=== PATIENT | female | born 1950 | race Caucasian/White ===

== ENCOUNTER → 2019-06-28 | Day surgery (SDC) | payer MEDICARE, OTHER ==
[~2019-06-28] MED LIST: AMITRIPTYLINE H25 MG PO; ATORVASTATIN CA20 MG PO; CALCET TABLET1 EACH PO; FENTANYL CITRATE/PF 100MCG/2 ML INJ ONE; LEVOTHYROXINE112 MCG PO; LISINOPRIL-HCT1 EAC1 PO; METFORMIN HCL500 MG PO; MIDAZOLAM HCL 2 MG/2 ML VIAL ONE; ONE DAILY WOME1 EACH PO; OR PHACO EYE KIT ONE; PANTOPRAZOLE SO40 MG PO; PAROXETINE HCL20 MG PO; PREOP PHACO EYE KIT ONE
--- OUTSIDE RECORDS SUMMARY | 2019-06-28 07:40 | XMS REPORT ---
Author Organization Unknown Address [address] [place] [address] Phone [phone] Care Team Providers Care Scheduler Name Role Phone RODOLFO CASTRO MD 110 [phone] STEPHANIE TOMLINSON MD 107 [phone] Allergies Code Code System Name Reaction Severity Status Onset 2670 RxNorm Codeine Active Medications Name Status Start Date Stop Date alendronate 70 mg tablet Take 1 tablet every week by oral route for 90 days. Active Not available amitriptyline 50 mg tablet Take 2 tablets every day by oral route for 90 days. Active Not available amoxicillin 500 mg capsule Completed 12/15/2017 atorvastatin 40 mg tablet Take 1 tablet by mouth every day Active Not available hydrochlorothiazide 25 mg tablet Active Not available levothyroxine 112 mcg tablet TAKE 1 TABLET BY MOUTH EVERY DAY Active Not available levothyroxine 125 mcg capsule Take 1 capsule every day by oral route. Completed 02/27/2017 levothyroxine 125 mcg tablet Active Not available lisinopril 20 mg tablet Active Not available lisinopril 20 mg-hydrochlorothiazide 25 mg tablet Take 1 tablet every day by oral route. Active Not available meloxicam 15 mg tablet Completed 12/15/2017 metformin 500 mg tablet TAKE 1 TABLET BY MOUTH TWICE A DAY Active Not available omeprazole 20 mg capsule,delayed release TAKE 1 CAPSULE BY MOUTH EVERY DAY Active Not available omeprazole 40 mg capsule,delayed release Completed 02/27/2017 paroxetine 20 mg tablet TAKE 1 TABLET BY MOUTH EVERY DAY Active Not available raloxifene 60 mg tablet Active Not available tramadol 50 mg tablet Completed 12/15/2017 Problems Name Status Onset Date Source Gastroesophageal Reflux Disease Active 03/02/2017 Osteoporosis Active 03/02/2017 Elevated Liver Enzymes Level Active 03/04/2017 Hypothyroidism Active Diabetes Mellitus Active Hyperlipidemia Active Depressive Disorder Active Hypertensive Disorder Active Procedures Date Name Performed by 09/28/2007 Knee Surgery Notes: both knees-knee replacement Information not available 09/28/1993 Hysterectomy (Partial) Information not available Lab Results Date Name Specimen Result Interpretation Description Value Range Status Address 02/27/2017 CMP, Serum or Plasma High Alt 62 U/L 0-55 U/L Final [facility] Laboratory: [address] [place] [address] High Ast 48 U/L 5-34 U/L Final [facility] Laboratory: [address], [place] Bun 12.0 mg/dL 9.8-20.1 mg/dL Final [facility] Laboratory: [address] [place] [address] Alk Phos 73 unit/L 40-150 unit/L Final [facility]: [address] [facility] Glucose 120 mg/dL 70-99 mg/dL Final [facility] [address] [facility] Albumin 4.1 g/dL 3.5-5.0 g/dL Final [facility] [address] [facility] Creatinine 0.82 mg/dL 0.57-1.11 mg/dL Final [facility] Laboratory: [address] [place] [address] eGFR Non- >60 mL/min/1.73m2 >60 mL/min/1.73m2 Final [facility] Laboratory: [address] [place] [address] Total Bilirubin 0.4 mg/dL 0.2-1.2 mg/dL Final [facility] Laboratory: [address] [place] [address] eGFR - >60 mL/min/1.73m2 >60 mL/min/1.73m2 Final [facility] Laboratory: [address] [place] [address] Sodium 140 mEq/L 136-145 mEq/L Final [facility] Laboratory: [address] Potassium 4.0 mEq/L 3.5-5.1 mEq/L Final [facility] Laboratory: [address] Chloride 101 mmol/L 98-107 mmol/L Final [facility] [address] [facility] Total Protein 7.6 g/dL 6.4-8.3 g/dL Final [facility] [address] [facility] Calcium 9.5 mg/dL 8.4-10.2 mg/dL Final [facility] Laboratory: [address] [place] [address], [place] Co2 27.7 mmol/L 23.0-31.0 mmol/L Final [facility] Laboratory: [address] Anion Gap 11 calc Final [facility] Laboratory: [address] 02/27/2017 Lipid Panel, Serum High Hdl 62 mg/dL 40-60 mg/dL Final [facility] Laboratory: [address] Triglyceride 79 mg/dL 0-149 mg/dL Final [facility] Laboratory: [address] VLDL Calc. 16 mg/dL Final [facility] Laboratory: [address] cholesterol/HDL Ratio 3 mg/dL Final [facility] Laboratory: [address] non-HDL Cholesterol Calc. 114 mg/dL 0-160 mg/dL Final [facility] Laboratory: [address] Cholesterol 176 mg/dL 0-199 mg/dL Final [facility] Laboratory: [address] LDL Calc. 98 mg/dL 0-130 mg/dL Final [facility] Laboratory: [address] 02/27/2017 TSH, Serum or Plasma Low Tsh 0.319 uIU/mL 0.350-4.940 uIU/mL Final [facility] Laboratory: [address] 02/27/2017 HbA1C (Hemoglobin a1C), Blood High A1C W/eag 6.4 % 1.0-5.7 % Final [facility] Laboratory: [address] [place] [address] Average Blood Glucose 137 mg/dL Final [facility] Laboratory: [address] 09/03/2016 CMP, Serum or Plasma Alt 45.0 U/L 0.0-55.0 U/L Final [facility] Laboratory: [address] Ast 31.0 U/L 5.0-34.0 U/L Final [facility] Laboratory: [address] Bun 13.0 mg/dL 7.0-20.0 mg/dL Final [facility] Laboratory: [address] Alk Phos 70.0 unit/L 40.0-150.0 unit/L Final [facility] Laboratory: [address] High Glucose 125.0 mg/dL 70.0-99.0 mg/dL Final [facility] Laboratory: [address] [place] Albumin 3.6 g/dL 3.5-5.0 g/dL Final [facility] [address] [facility] Creatinine 0.8 mg/dL 0.6-1.1 mg/dL Final [facility] [address] [facility] eGFR Non- >60 mL/min/1.73m2 >60.0 mL/min/1.73m2 Final [facility] [address] [facility] Total Bilirubin 0.5 mg/dL 0.2-1.2 mg/dL Final [facility] [address] eGFR - >60 mL/min/1.73m2 >60.0 mL/min/1.73m2 Final [facility] [address] Sodium 139.0 mEq/L 137.0-144.0 mEq/L Final [facility] [address] Potassium 4.1 mEq/L 3.5-5.0 mEq/L Final [facility] [address] [facility] Chloride 103.0 mmol/L 101.0-110.0 mmol/L Final [facility] [address] [facility] Total Protein 6.8 g/dL 6.4-8.3 g/dL Final [facility] [address] [facility] Calcium 9.1 mg/dL 8.4-10.2 mg/dL Final [facility] [address] [facility] Co2 24 mmol/L 22-31 mmol/L Final [facility] Laboratory: [address] [place] Anion Gap 12.0 calc Final [facility] [address] [facility] 09/03/2016 Lipid Panel, Serum Hdl 53.0 mg/dL 40.0-60.0 mg/dL Final [facility] [address] Triglyceride 99.0 mg/dL 0.0-149.0 mg/dL Final [facility] Laboratory: [address] VLDL Calc. 19.8 mg/dL Final [facility] Laboratory: [address] cholesterol/HDL Ratio 3.0 mg/dL Final [facility] Laboratory: [address] non-HDL Cholesterol Calc. 106.0 mg/dL 0.0-160.0 mg/dL Final [facility] Laboratory: [address] Cholesterol 159.0 mg/dL 0.0-199.0 mg/dL Final [facility] Laboratory: [address] LDL Calc. 86.2 mg/dL 0.0-130.0 mg/dL Final [facility] Laboratory: [address] [place] [address], [place] 09/03/2016 TSH, Serum or Plasma Tsh 0.9911 uIU/mL 0.3500-4.9400 uIU/mL Final [facility] Laboratory: [address] [place] [address], [place] 09/03/2016 HbA1C (Hemoglobin a1C), Blood High A1C W/eag 6.5 % 1.0-5.7 % Final [facility] Laboratory: [address] Average Blood Glucose 139.9 mg/dL Final [facility] Laboratory: [address] [address], [place] 02/08/2016 CMP, Serum or Plasma No observation recorded. [facility]: [id number], [place] 08/14/2015 CBC W/ Auto Diff No observation recorded. [facility]: [id number], [place] Glucose, Fingerstick, Blood Blood Glucose: mg/dl 130 [facility]: [address] [place] [address] Albumin:creatinine Ratio, Urine Type Urine Microlalbumin 30 mg/L [facility]: [address] [place] [address] Type Urine Creatinine 100 mg/dL [facility]: [address] [place] [address] Type A:C Ratio <30 mg/g (Normal) [facility]: [address] [place] [address] Past Encounters 12/15/2017 Hypertensive Disorder; Diabetes Mellitus; Mixed Anxiety and Depressive Disorder; Osteoporosis; Hyperlipidemia; Hypothyroidism; Gastroesophageal Reflux Disease Kamille Torres MD: [address] [place] [phone], Ph. 02/27/2017 Hypertensive Disorder; Hypothyroidism; Hyperlipidemia; Mixed Anxiety and Depressive Disorder; Gastroesophageal Reflux Disease; Type 2 Diabetes Mellitus without Complication; Benign Essential Hypertension; Pain in Wrist; Osteoporosis Kamille Torres MD: [address] [place] [address], Ph. 09/03/2016 Mixed Anxiety and Depressive Disorder; Benign Essential Hypertension; Type 2 Diabetes Mellitus without Complication; Hyperlipidemia; Hypothyroidism; Osteoporosis; Influenza Vaccination; Pneumococcal Vaccination Suresh Waggoner MD: [address] [place] [address], Ph. Social History Smoking Status Former Smoker (1/2 PPD) Notes: quit in 2012 Vaccine List Vaccine Type influenza, high dose seasonal 09/03/20160.5 mL influenza, unspecified formulation 05/29/2015 pneumococcal conjugate PCV 13 09/03/20160.5 mL Plan of Care Reminders Provider Appointments None recorded. Lab None recorded. Referral None recorded. Procedures None recorded. Surgeries None recorded. Imaging None recorded. Vitals 12/15/2017 10:00AM Est Patient Height Weight BMI Blood Pressure 5 ft 5 in 247 lbs 41.1 kg/m2 136/84 mm[Hg] 02/27/2017 10:15AM Est Patient Height Weight BMI Blood Pressure 5 ft 5 in 252 lbs 41.9 kg/m2 (1) 156/100 mm[Hg] (2) 167/98 mm[Hg] 09/03/2016 09:30AM Est Patient Height Weight BMI Blood Pressure 5 ft 5 in 245 lbs 40.8 kg/m2 (1) 141/85 mm[Hg] (2) 141/94 mm[Hg]
--- OUTSIDE RECORDS SUMMARY | 2019-06-28 07:40 | XMS REPORT | Encounter Summary ---
Author Organization Unknown Address [address] [place] [address] Phone [phone] Care Team Providers Care Mat Cleaning Machine Operator Name Role Phone Dr. Malcolm Damian 3 [phone] Kamille Torres MD 3 [phone] Chris Deluna MD 107 [phone] Alex Little MD 110 [phone] Reason for Visit Hypothyroidism; Hypertensive disorder; Hyperlipidemia; Diabetes mellitus; Depressive disorder Instructions 1. Mixed anxiety and depressive disorder amitriptyline 50 mg tablet paroxetine 20 mg tablet 2. Hyperlipidemia atorvastatin 40 mg tablet 3. Hypothyroidism levothyroxine 112 mcg tablet TSH, serum or plasma 4. Hypertensive disorder lisinopril 20 mg-hydrochlorothiazide 25 mg tablet 5. Diabetes mellitus metformin 500 mg tablet microalbumin:creatinine ratio, urine HbA1c (hemoglobin A1c), blood CMP, serum or plasma lipid panel, serum 6. Gastroesophageal reflux disease pantoprazole 20 mg tablet,delayed release 7. Depression screening learning about depression 8. At risk for falls preventing falls: care instructions 9. Body mass index 40+ - severely obese learning about healthy weight body mass index: care instructions 10. Eye disorder screening diabetic ophthalmology referral glaucoma referral 11. Screening for disorder hepatitis C virus RNA, quant, PCR, serum or plasma 12. Immunization Shingrix Adjuvant Component (PF) intramuscular suspension Discussion Note: None recorded. Plan of Care Patient Instructions contiue all meds <wgt >exercise Reminders Provider Appointments Nurse Visit 02/08/2019 10:00AM Nurse Hoople Return to Office on or around 03/11/2019 Malcolm Damian MD Lab Hepatitis C Virus RNA, Quant, PCR, Serum or Plasma 12/09/2018 [facility] Laboratory Microalbumin:creatinine Ratio, Urine 12/09/2018 [facility] Laboratory HbA1C (Hemoglobin a1C), Blood 12/09/2018 [facility] Laboratory CMP, Serum or Plasma 12/09/2018 [facility] Lipid Panel, Serum 12/09/2018 [facility] Laboratory TSH, Serum or Plasma 12/09/2018 [facility] Laboratory Referral Diabetic Ophthalmology Referral 12/09/2018 Fritz Gardner MD Glaucoma Referral 12/09/2018 Fritz Gardner MD Procedures None recorded. Surgeries None recorded. Imaging None recorded. Medications Name Start Date amitriptyline 50 mg tablet Take 2 tablets every day by oral route for 90 days. atorvastatin 40 mg tablet Take 1 tablet by mouth every day levothyroxine 112 mcg tablet TAKE 1 TABLET BY MOUTH EVERY DAY lisinopril 20 mg-hydrochlorothiazide 25 mg tablet Take 1 tablet every day by oral route. metformin 500 mg tablet TAKE 1 TABLET BY MOUTH TWICE A DAY pantoprazole 20 mg tablet,delayed release 1 qd paroxetine 20 mg tablet TAKE 1 TABLET BY MOUTH EVERY DAY Medications Administered None recorded. Vitals Height Weight BMI Blood Pressure 5 ft 5 in 248 lbs 41.3 kg/m2 120/75 mm[Hg] Lab Results None recorded. Allergies Code Code System Name Reaction Severity Status Onset 594 RxNorm Codeine Active Problems Name Status Onset Date Source Gastroesophageal Reflux Disease Active 03/02/2017 Osteoporosis Active 03/02/2017 Elevated Liver Enzymes Level Active 03/04/2017 Hypothyroidism Active Diabetes Mellitus Active Hyperlipidemia Active Depressive Disorder Active Hypertensive Disorder Active Procedures Date Name Performed by 09/28/2007 Knee Surgery Information not available 09/28/1993 Hysterectomy (Partial) Information not available Vaccine List Vaccine Type influenza, high dose seasonal 09/03/20160.5 mL 06/11/20180.5 mL influenza, unspecified formulation 05/29/2015 pneumococcal conjugate PCV 13 09/03/20160.5 mL pneumococcal polysaccharide PPV23 06/11/20180.5 mL zoster subunit 12/09/20180.5 mL Social History Smoking Status Former Smoker (1/2 PPD) Past Encounters 12/09/2018 Mixed Anxiety and Depressive Disorder; Hyperlipidemia; Hypothyroidism; Hypertensive Disorder; Diabetes Mellitus; Gastroesophageal Reflux Disease; Depression Screening; At Risk for Falls; Body Mass Index 40+ - Severely Obese; Eye Disorder Screening; Screening for Disorder; Immunization Malcolm Damian MD: [address] [place] [address], Ph. History of Present Illness Note:f/u chronic conditions compliant with all meds not diet/exercise,fbs 120< div>no cp/sob/myalgia/feelings of depression/suicidal /homicidal thoughts</div> Review of Systems:ROS as noted in the HPI Review of Systems None recorded. Physical Exam Cardiology Exam Reported By: Patient Constitutional: General Appearance: well-developed, appears stated age, obese. Level of Distress: comfortable Psychiatric: Mental Status: alert, normal affect. Orientation: oriented to time, place, and person. Insight: good judgment Eyes: Lids and Conjunctivae: non-injected, anicteric, no discharge, no pallor, no arcus senilis, no xanthelasma. Pupils: PERRLA Neck: Neck: supple, trachea midline, no masses, FROM. Carotid Arteries: bilateral normal upstroke, no bruits, no thrills. Cervical Lymph Nodes: non tender, not enlarged. Thyroid: not enlarged, non tender, no nodules Lungs: Respiratory Effort: unlabored. Chest Exam: normal curvature, no thoracic deformity, no chest wall tenderness. Percussion: resonant. Auscultation: clear, no wheezing, no rales, no rhonchi Cardiovascular: Precordial Exam: non displaced focal PMI, no heaves, no precordial thrills. Rate And Rhythm: regular. Heart Sounds: normal S1, physiologically split S2, no rub, no gallop, no click. Systolic Murmur: not heard. Diastolic Murmur: not heard. Extremities: no cyanosis, no edema, no peripheral signs of emboli Skin: Inspection and Palpation: warm and dry. Nails: no clubbing
--- OUTSIDE RECORDS SUMMARY | 2019-06-28 07:40 | XMS REPORT ---
Author Author [facility] Address Unknown Phone Unavailable Care Team Providers Care Jack Strip Assembler Name Role Phone Unavailable Unavailable Problems This patient has no known problems. Allergies, Adverse Reactions, Alerts This patient has no known allergies or adverse reactions. Medications This patient has no known medications. Results Test Description Test Time Test Comments Text Results Atomic Results Result Comments BREAST ULTRASOUND BILATERAL 2018-07-26 11:58:06 - DIAG MAMM BILATERAL CAD DIGITALBILATERAL DIGITAL DIAGNOSTIC MAMMOGRAM WITH CAD: 07/26/2018CLINICAL: Follow up to previous exam. Current mammographic images were evaluated by either a [employer] M-Vu or a [employer] Image[employer]er CAD (computer aided detection system). Comparison is made to exams dated 07/09/2017 mammogram, 06/10/2016 mammogram, 03/27/2015 mammogram, 03/24/2014 mammogram, and 03/11/2013 mammogram - [facility]. The tissue of both breasts is heterogeneously dense. This may lower the sensitivity of mammography. There are nodular densities that most likely represent benign fibroadenomas, cysts, or nodular breast tissue, however this must be confirmed with ultrasound. No suspicious mass, architectural distortion, malignant type calcification, or lymph node abnormality detected. INCOMPLETE ASSESSMENT: ADDITIONAL IMAGING EVALUATION RECOMMENDEDUltrasound pending for additional evaluation. Resume annual screening mammography in one year. - BREAST ULTRASOUND BILATERALULTRASOUND OF BOTH BREASTS AND BOTH AXILLA: 07/26/2018Comparison is made to exams dated 07/09/2017 mammogram, 06/10/2016 mammogram, 03/27/2015 mammogram, 03/24/2014 mammogram, and 03/11/2013 mammogram - [facility]. Real-time ultrasound of both breasts and both axilla was performed. There is a benign 1.3 cm fibroadenoma in the right breast at 8 o'clock, 8 cm from the nipple. No abnormalities were seen sonographically in the left breast or either axilla. IMPRESSION: BENIGN There is no sonographic evidence of malignancy. Patient has been informed that she should have a screening mammogram and supplemental ultrasound in 1 year.Rose Edwards M.D. dm/:07/26/2018 11:58:06 copy to: Kamille Torres M.D., ph: [phone], fax: [phone] Technologist: Evan NGUYEN, [facility] sent: BIRADS 1-2 Combo FU Letter Mammogram BI-RADS: 0 Indeterminate Ultrasound BI-RADS: 2 Benign DIAG MAMM BILATERAL CAD DIGITAL 2018-07-26 11:58:06 - DIAG MAMM BILATERAL CAD DIGITALBILATERAL DIGITAL DIAGNOSTIC MAMMOGRAM WITH CAD: 07/26/2018CLINICAL: Follow up to previous exam. Current mammographic images were evaluated by either a [employer] M-Vu or a [employer] CAD (computer aided detection system). Comparison is made to exams dated 07/09/2017 mammogram, 06/10/2016 mammogram, 03/27/2015 mammogram, 03/24/2014 mammogram, and [facility] The tissue of both breasts is heterogeneously dense. This may lower the sensitivity of mammography. There are nodular densities that most likely represent benign fibroadenomas, cysts, or nodular breast tissue, however this must be confirmed with ultrasound. No suspicious mass, architectural distortion, malignant type calcification, or lymph node abnormality detected. INCOMPLETE ASSESSMENT: ADDITIONAL IMAGING EVALUATION RECOMMENDEDUltrasound pending for additional evaluation. Resume annual screening mammography in one year. - BREAST ULTRASOUND BILATERALULTRASOUND OF BOTH BREASTS AND BOTH AXILLA: 07/26/2018Comparison is made to exams dated 07/09/2017 mammogram, 06/10/2016 mammogram, 03/27/2015 mammogram, 03/24/2014 mammogram, and 03/11/[facility]. Real-time ultrasound of both breasts and both axilla was performed. There is a benign 1.3 cm fibroadenoma in the right breast at 8 o'clock, 8 cm from the nipple. No abnormalities were seen sonographically in the left breast or either axilla. IMPRESSION: BENIGN There is no sonographic evidence of malignancy. Patient has been informed that she should have a screening mammogram and supplemental ultrasound in 1 year.Rose Edwards M.D. dm/:07/26/2018 11:58:06 copy to: Kamille Torres M.D., ph: [phone], fax: [phone] Technologist: Evan NGUYEN, [facility] BIRADS 1-2 Combo FU Letter Mammogram BI-RADS: 0 Indeterminate Ultrasound BI-RADS: 2 Benign BREAST ULTRASOUND BILATERAL 2018-07-26 11:58:06 - DIAG MAMM BILATERAL CAD DIGITALBILATERAL DIGITAL DIAGNOSTIC MAMMOGRAM WITH CAD: 07/26/2018CLINICAL: Follow up to previous exam. Current mammographic images were evaluated by either a [employer] M-Vu or a [employer] Image[employer]er CAD (computer aided detection system). Comparison is made to exams dated 07/09/2017 mammogram, 06/10/2016 mammogram, 03/27/2015 mammogram, 03/24/2014 mammogram, and 03/11/[facility]. The tissue of both breasts is heterogeneously dense. This may lower the sensitivity of mammography. There are nodular densities that most likely represent benign fibroadenomas, cysts, or nodular breast tissue, however this must be confirmed with ultrasound. No suspicious mass, architectural distortion, malignant type calcification, or lymph node abnormality detected. INCOMPLETE ASSESSMENT: ADDITIONAL IMAGING EVALUATION RECOMMENDEDUltrasound pending for additional evaluation. Resume annual screening mammography in one year. - BREAST ULTRASOUND BILATERALULTRASOUND OF BOTH BREASTS AND BOTH AXILLA: 07/26/2018Comparison is made to exams dated 07/09/2017 mammogram, 06/10/2016 mammogram, 03/27/2015 mammogram, 03/24/2014 mammogram, and 03/11/[facility]. Real-time ultrasound of both breasts and both axilla was performed. There is a benign 1.3 cm fibroadenoma in the right breast at 8 o'clock, 8 cm from the nipple. No abnormalities were seen sonographically in the left breast or either axilla. IMPRESSION: BENIGN There is no sonographic evidence of malignancy. Patient has been informed that she should have a screening mammogram and supplemental ultrasound in 1 year.Rose Edwards M.D. dm/:07/26/2018 11:58:06 copy to: Kamille Torres M.D., ph: [phone], fax: [phone] Technologist: Evan NGUYEN, [facility] sent: BIRADS 1-2 Combo FU Letter Mammogram BI-RADS: 0 Indeterminate Ultrasound BI-RADS: 2 Benign DIAG MAMM BILATERAL CAD DIGITAL 2018-07-26 11:58:06 - DIAG MAMM BILATERAL CAD DIGITALBILATERAL DIGITAL DIAGNOSTIC MAMMOGRAM WITH CAD: 07/26/2018CLINICAL: Follow up to previous exam. Current mammographic images were evaluated by either a [employer] M[employer]Vu or a [employer] CAD (computer aided detection system). Comparison is made to exams dated 07/09/2017 mammogram, 06/10/2016 mammogram, 03/27/2015 mammogram, 03/24/2014 mammogram, and 03/11/[facility]. The tissue of both breasts is heterogeneously dense. This may lower the sensitivity of mammography. There are nodular densities that most likely represent benign fibroadenomas, cysts, or nodular breast tissue, however this must be confirmed with ultrasound. No suspicious mass, architectural distortion, malignant type calcification, or lymph node abnormality detected. INCOMPLETE ASSESSMENT: ADDITIONAL IMAGING EVALUATION RECOMMENDEDUltrasound pending for additional evaluation. Resume annual screening mammography in one year. - BREAST ULTRASOUND BILATERALULTRASOUND OF BOTH BREASTS AND BOTH AXILLA: 07/26/2018Comparison is made to exams dated 07/09/2017 mammogram, 06/10/2016 mammogram, 03/27/2015 mammogram, 03/24/2014 mammogram, and 03/11/2013 [facility]. Real-time ultrasound of both breasts and both axilla was performed. There is a benign 1.3 cm fibroadenoma in the right breast at 8 o'clock, 8 cm from the nipple. No abnormalities were seen sonographically in the left breast or either axilla. IMPRESSION: BENIGN There is no sonographic evidence of malignancy. Patient has been informed that she should have a screening mammogram and supplemental ultrasound in 1 year.Rose Edwards M.D. dm/:07/26/2018 11:58:06 copy to: Kamille Torres M.D., ph: [phone], fax: [phone] Technologist: Evan NGUYEN, [facility] sent: BIRADS 1-2 Combo FU Letter Mammogram BI-RADS: 0 Indeterminate Ultrasound BI-RADS: 2 Benign
--- OUTSIDE RECORDS SUMMARY | 2019-06-28 07:40 | XMS REPORT | Encounter Summary ---
Author Organization Unknown Address [address] [place] [id number] Phone [phone] Care Team Providers Care Retail Loss Prevention Officer Name Role Phone Dr. Malcolm Damian 3 [phone] Kamille Torres MD 3 [phone] Chris Deluna MD 107 [phone] Alex Little MD 110 [phone] Reason for Visit Diabetes mellitus; diabetic foot exam; other - see typed reason Instructions 1. Type 2 diabetes mellitus diabetic foot screen (PROC) 2. Mixed hyperlipidemia due to type 2 diabetes mellitus 3. Body mass index 40+ - severely obese body mass index: care instructions learning about healthy weight 4. Hypothyroidism 5. Hypertensive disorder 6. Elevated liver enzymes level Discussion Note: None recorded. Plan of Care Reminders Provider Appointments Nurse Visit 02/08/2019 10:00AM Nurse Diamond Return to Office on or around 02/28/2019 Kamille Torres MD Lab None recorded. Referral None recorded. Procedures Diabetic Foot Screen (PROC) 02/07/2019 Surgeries None recorded. Imaging None recorded. Medications [...] ft 5 in 247 lbs 41.1 kg/m2 (1) 152/72 mm[Hg] (2) 142/68 mm[Hg] Lab Results None recorded. Allergies Code Code System Name Reaction Severity Status Onset 2669 RxNorm Codeine Active Problems Name Status Onset [...] Status Former Smoker (1/2 PPD) Past Encounters 02/07/2019 Type 2 Diabetes Mellitus; Mixed Hyperlipidemia Due to Type 2 Diabetes Mellitus; Body Mass Index 40+ - Severely Obese; Hypothyroidism; Hypertensive Disorder; Elevated Liver Enzymes Level Kamille Torres MD: [address] [place] [address], Ph. History of Present Illness Note:68yo female presents for diabetes follow-up. Pt has been checking home blood sugars and notes that they've been higher than usual. Blood sugar was 123 this morning, but other morning readings have been in the 150-160 range. Had one reading 198 in afternoon. Last eye exam was 01/18/19 - no retinopathy. Ophtho consult note, Dr Gardner reviewed. Bilateral cataract surgery planned, starting with left eye in March 2019.<div>Last A1c was 6.5% on 12/09/18 with TSH 1.568, TC 169, HDL 63, LDL 91, TG 73. No proteinuria. AST 44, ALT 57. </div><div> on keto diet for past 12wks - has lost 36#. Pt watching keto diet, except sweets at night - candy, cake.</div><div>Planning to go to Medicare next month on 02/26/19 - still working at age 70yo, plans to retire about age 72.</div>< div>
</div><div><div><div>PMHx:</div><div>Hypertension - past 30yrs. Does check home blood pressures with readings in 130s/70-80 range. On lisinopril/hctz 20/25 qd.</div><div>Hypothyroidism - past 40yrs. Currently on replacement with levothyroxine 112 mcg/d. </div><div>Hyperlipidemia - past 30yrs. Currently on the atorvastatin 20mg qd.</div><div>Diabetes - past 8 yrs. Currently on metformin 500mg bid. Last Hgb A1c was 6.5%. Pt lost 104# with diet & exercise when first diagnosed & kept it off for three years. Has not been watching diabetic diet recently. </div><div>Depression/anxiety - Currently on paxil & amitriptyline. Mood stable on this combination.</div><div> GERD - Currently on omeprazole. Stable. Had colonoscopy/EGD in 2014, Dr. Deluna. </div>< div>Hx colon polyps - last colonoscopy 05/17/15. Repeat in [address] Deluna.</div> <div>Osteoporosis - On raloxifene 60mg qd for past 20yrs. Last DEXA 06/[address] Edwards.</div></div></div> Review of Systems:ROS as noted in the HPI Review of Systems Comprehensive General Adult ROS Reported By: Patient Constitutional: Constitutional: no fever Eyes: Eyes: no vision change Cardiovascular: Cardiovascular: no chest pain Respiratory: Respiratory: no cough, no wheezing, no shortness of breath Gastrointestinal: Gastrointestinal: no abdominal pain Neurologic: Neurologic: no loss of consciousness, no weakness, no numbness, no headaches Physical Exam General Adult Exam (Female), Diabetic Foot Exam Reported By: Patient Constitutional: General Appearance: healthy-appearing, well-developed, overweight. Level of Distress: NAD. Ambulation: ambulating normally Psychiatric: Mental Status: active and alert, normal mood, normal affect Eyes: Lids and Conjunctivae: non-injected. Pupils: PERRLA. EOM: EOMI. Sclerae: non-icteric ENMT: Hearing: no hearing loss. Oropharynx: moist mucous membranes Neck: Thyroid: non-tender, no nodules Lungs: Respiratory effort: no dyspnea. Auscultation: breath sounds normal, good air movement, no wheezing, no rales/crackles Cardiovascular: Heart Auscultation: RRR, normal S1, normal S2, no murmurs. Neck vessels: no carotid bruits. Right Pulses: normal dorsalis pedis pulse. Left Pulses: normal dorsalis pedis pulse Abdomen: Bowel Sounds: normal. Inspection and Palpation: soft Musculoskeletal:: Joints, Bones, and Muscles: normal movement of all extremities. Extremities: no edema Neurologic: Gait and Station: normal gait, normal station. Sensation Right Foot: sensation intact, normal monofilament wire test, no tactile decrease on the sole of the foot. Sensation Left Foot: sensation intact, normal monofilament wire test, no tactile decrease on the sole of the foot Skin: Inspection and palpation: no rash. Right Lower Extremity: normal. Left Lower Extremity: normal Foot Exam:: Right Foot: right foot was examined, right foot toes were examined, digital hair present right, no interdigital erythema, normal motion, no deformity. Left Foot: left foot was examined, left foot toes were examined, digital hair present left, no interdigital erythema, normal motion, no deformity
--- OUTSIDE RECORDS SUMMARY | 2019-06-28 07:41 | XMS REPORT | Encounter Summary ---
Author Organization Unknown Address [address] [place] [address] Phone [phone] Care Team Providers Care Fluoroscope Operator Name Role Phone Dr. Kamille Torres 3 [phone] Suresh Brock MD 3 [phone] Chris Deluna MD 107 [phone] Alex Little MD 110 [phone] Fritz Gardner MD 111 [phone] Reason for Visit Mixed anxiety and depressive disorder; Hypertensive disorder; Hyperlipidemia; Diabetes mellitus; AWV Annual Wellness Visit Female (VFP) Instructions 1. Adult health examination 2. Body mass index 40+ - severely obese body mass index: care instructions learning about healthy weight 3. Depression screening 4. At risk for falls preventing falls: care instructions 5. Hypertensive disorder lisinopril 20 mg-hydrochlorothiazide 25 mg tablet 6. Hyperlipidemia high cholesterol: care instructions atorvastatin 40 mg tablet lipid panel, serum CMP, serum or plasma 7. Diabetes mellitus metformin 500 mg tablet HbA1c (hemoglobin A1c), blood microalbumin/creatinine, ratio, urine 8. Hypothyroidism levothyroxine 112 mcg tablet TSH, serum or plasma 9. Gastroesophageal reflux disease pantoprazole 20 mg tablet,delayed release 10. Influenza vaccination Fluzone High-Dose 2019-20 (PF) 180 mcg/0.5 mL intramuscular syringe 11. Peripheral vascular disease 12. Recurrent major depression paroxetine 20 mg tablet amitriptyline 50 mg tablet 13. Plantar fasciitis of left foot Voltaren 1 % topical gel Discussion Note: None recorded. Plan of Care Patient Instructions It was good to see you in the office today for your Medicare Annual Wellness Visit. You have been provided some information on healthy nutrition, including a diet rich in fruits and vegetables, minimizing simple carbohydrates, salt, and saturated fats. I want to encourage regular cardiovascular exercise such as walking at least 30 minutes daily, 5 times per week. Please remember to schedule any preventive health measures that we talked about today. You have also been provided education on fall prevention and community- based lifestyle interventions to help reduce health risks and promote healthy living in your Annual Wellness folder. Screening Recommendations 1. Vaccines Pneumonia: No further need Influenza: Ordered 2. Mammography Screening: Next Screening 3. Colorectal Cancer Screening: Colonoscopy Next Screening 4. Annual Depression Screening 5. Annual Alcohol Screening 6. Annual Fall Risk Screening 7. Annual Health Risk Assessment Reminders Provider Appointments Return to Office on or around 12/06/2019 Suresh Waggoner MD Lab Lipid Panel, Serum 06/06/2019 [facility] CMP, Serum or Plasma 06/06/2019 [facility] HbA1C (Hemoglobin a1C), Blood 06/06/2019 [facility] Microalbumin/creatinine, Ratio, Urine 06/06/2019 [facility] TSH, Serum or Plasma 06/06/2019 [facility] Referral None recorded. Procedures None recorded. Surgeries [...] 1 TABLET BY MOUTH TWICE A DAY OneTouch Verio strips Take 1 strip every day by miscell. route. pantoprazole 20 mg tablet,delayed release Take 1 tablet every day by oral route. paroxetine 20 mg tablet TAKE 1 TABLET BY MOUTH EVERY DAY Voltaren 1 % topical gel APPLY 2 GRAMS TO THE AFFECTED AREA(S) BY TOPICAL ROUTE 4 TIMES PER DAY NEEDED Medications Administered None recorded. Vitals Height Weight BMI Blood Pressure 5 ft 4 in 250 lbs 42.9 kg/m2 136/86 mm[Hg] Lab Results None recorded. Allergies Code Code System Name Reaction Severity Status Onset 8650 RxNorm Codeine Active Problems Name Status Onset Date Source Gastroesophageal Reflux Disease Active 03/02/2017 Osteoporosis Active 03/02/2017 Elevated Liver Enzymes Level Active 03/04/2017 Mixed Anxiety and Depressive Disorder Active 06/06/2019 Hypothyroidism Active Diabetes Mellitus Active Hyperlipidemia Active Depressive Disorder Active Hypertensive Disorder Active Procedures Date Name Performed by 09/28/2007 Knee Surgery Information not available 09/28/1993 Hysterectomy (Partial) Information not available Vaccine List Vaccine Type influenza, high dose seasonal 09/03/20160.5 mL 06/11/20180.5 mL 06/06/20190.5 mL influenza, unspecified formulation 05/29/2015 pneumococcal conjugate PCV 13 09/03/20160.5 mL pneumococcal polysaccharide PPV23 06/11/20180.5 mL zoster subunit 12/09/20180.5 mL Social History Tobacco Smoking Status Former Smoker (1/2 PPD) Past Encounters 06/06/2019 Adult Health Examination; Body Mass Index 40+ - Severely Obese; Depression Screening; At Risk for Falls; Hypertensive Disorder; Hyperlipidemia; Diabetes Mellitus; Hypothyroidism; Gastroesophageal Reflux Disease; Influenza Vaccination; Peripheral Vascular Disease; Recurrent Major Depression; Plantar Fasciitis of Left Foot Suresh Waggoner MD: [address] [place] [address], Ph. History of Present Illness Mini Cog Reported By: Patient Functional Ability: Personal/Social/ Draw a clock and write in the numbers in the correct place, and set the time to 10 minutes after 11 o'clock was completed correctly? Yes, 3 word recall: Your nurse or doctor will ask you to remember 3 words. In 5 minutes, they will ask you to repeat them. Patient recalled 2 words Opioid Use Assessment Reported By: Patient Opioid Use Assessment:: Current Use of Opioids : no use of opioids (no further questions required) Note:F/u on chronic conditions. Needs refill in meds. Compliant with meds. Non compliant with diet or exercise. Glucose readings at home 130s-170s fasting. BPs at home 120s/80s. No side effects with meds. No new concerns. Review of Systems Comprehensive General Adult ROS Reported By: Patient Constitutional: Constitutional: no fever Eyes: Eyes: no vision change Cardiovascular: Cardiovascular: no chest pain Respiratory: Respiratory: no cough, no wheezing, no shortness of breath Gastrointestinal: Gastrointestinal: no abdominal pain Neurologic: Neurologic: no loss of consciousness, no headaches Psychiatric: Psych: no depression, no alcohol abuse, no anxiety, no suicidal thoughts Physical Exam General Adult Exam (male) Reported By: Patient Constitutional: General Appearance: healthy-appearing. Level of Distress: NAD Eyes: Lids and Conjunctivae: non-injected, no discharge. EOM: EOMI ENMT: Ears: TMs clear. Nose: no sinus tenderness. Lips, Teeth, and Gums: no mouth or lip ulcers. Oropharynx: moist mucous membranes Neck: Neck: supple, trachea midline. Thyroid: no enlargement, non-tender Lungs: Auscultation: breath sounds normal Cardiovascular: Heart Auscultation: RRR, normal S1, normal S2, no murmurs. Neck vessels: no carotid bruits. Pulses including femoral / pedal: normal throughout Abdomen: Inspection and Palpation: soft, non-distended, no tenderness, no guarding Neurologic: Gait and Station: normal gait Skin: Inspection and palpation: no rash, no lesions
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
[2019-06-28 10:10] VITALS: BP 135/67
== END | disposition home or self-care (01) ==
LOC: OR 07:32
PROVIDERS: ATTEND Ophthalmology
DX: H25.12 Age-related nuclear cataract, left eye (principal); E11.9 Type 2 diabetes mellitus without complications; I10 Essential (primary) hypertension; E78.5 Hyperlipidemia, unspecified; E03.9 Hypothyroidism, unspecified; K21.9 Gastro-esophageal reflux disease without esophagitis; M81.0 Age-related osteoporosis without current pathological fracture; F32.9 Major depressive disorder, single episode, unspecified; F41.9 Anxiety disorder, unspecified; Z88.6 Allergy status to analgesic agent; Z79.84 Long term (current) use of oral hypoglycemic drugs
CPT/HCPCS: 36415; 66984; 82948; J2250; J3010